=== PATIENT | male | born 2000 | race African-American/Black ===

== ENCOUNTER 2022-10-21 18:18 | Emergency (ER) | payer SELFPAY ==
[2022-10-21 18:52] VITALS: BP 119/77; O2SAT 100
[2022-10-21 18:53] LABS: HCT - HEMATOCRIT 43.3 % (42.0-52.0); HGB - HEMOGLOBIN 13.8 g/dL (14.0-18.0); LYMPHOCYTES # (AUTO) 1.8 10^3/uL (1.5-3.5); LYMPHOCYTES % (AUTO) 46.2 %; MEAN CORPUSCULAR HEMOGLOBIN 26.7 pg (27.0-31.0); MEAN CORPUSCULAR HGB CONC 31.9 g/dL (32.0-36.0); MEAN CORPUSCULAR VOLUME 83.9 fL (80.0-94.0); MEAN PLATELET VOLUME 11.2 fL (7.4-11.4); MONOCYTES # (AUTO) 0.3 10^3/uL (0.0-1.0); MONOCYTES % (AUTO) 8.9 %; NEUTROPHILS # (AUTO) 1.6 10^3/uL (1.5-6.6); NEUTROPHILS % (AUTO) 42.6 %; PLT - PLATELET COUNT 179 10^3/uL (130-450); RED BLOOD COUNT 5.16 10^6/uL (4.70-6.10); RED CELL DISTRIBUTION WIDTH 12.8 % (12.0-15.0); WHITE BLOOD COUNT 3.8 x10^3/uL (4.8-10.8)
[2022-10-21 19:07] LABS: ALBUMIN 4.7 g/dL (3.2-5.5); CALCIUM 9.7 mg/dL (8.5-10.3); CREATININE 1.2 mg/dL (0.6-1.3); POTASSIUM 3.5 mmol/L (3.5-4.5); TOTAL PROTEIN 7.1 g/dL (6.4-8.9)
[2022-10-21 19:07] LABS: BILIRUBIN,URINE NEGATIVE (NEGATIVE); GLUCOSE, URINE (UA) NEGATIVE (NEGATIVE); KETONES,URINE (UA) NEGATIVE (NEGATIVE); LEUKOCYTE ESTERASE, URINE NEGATIVE (NEGATIVE); NITRITE,URINE NEGATIVE (NEGATIVE); OCCULT BLOOD,URINE NEGATIVE (NEGATIVE); PROTEIN,URINE NEGATIVE (NEGATIVE); UROBILINOGEN,URINE 0.2 (NORMAL) E.U./dL (NORMAL)
[2022-10-21 19:10] LABS: CLARITY,URINE CLEAR (CLEAR)
[2022-10-21] MEDS ORDERED: PANTOPRAZOLE 40 MG TABLET PO STA (20:01)
--- NOTE | 2022-10-21 20:03 | ED Physician Documentation ---
PD HPI ABD PAIN - Stated complaint Stated Complaint: ABD PX - Chief complaint Chief Complaint: Abd Pain - History obtained from History obtained from: Patient - Additional information Additional information: 21-year-old with history of asthma but no other health history presents the evaluation of left upper quadrant pain. He has had intermittent left upper quadrant pain for the last 5 days that radiates to the back. It is worse after eating, especially spicy food. He has not been vomiting. He felt like he was constipated but took a laxative and did have a bowel movement. No history of abdominal surgeries. Other risk factors for gastritis include nicotine use, caffeine use, and he has been taking Advil for this. PD PAST MEDICAL HISTORY - Present Medications Home Medications: Ambulatory Orders Medication Instructions Recorded Confirmed Omeprazole 40 mg PO DAILY #30 cap 10/21/22 - Allergies Allergies/Adverse Reactions: Allergies Allergy/AdvReac Type Severity Reaction Status Date / Time No Known Drug Allergies Allergy Verified 10/21/22 18:38 PD ED PE NORMAL - Vitals Vital signs reviewed: Yes - General General: Alert and oriented X 3, No acute distress - Abdomen Abdomen: Normal bowel sounds, Soft, Non tender - Derm Derm: Normal color, Warm and dry - Neuro Neuro: Alert and oriented X 3, Normal speech Results - Vitals Vitals: Vital Signs - 24 hr 10/21/22 18:29 Temperature 36.7 C Heart Rate 65 Respiratory 20 Rate Blood Pressure 119/77 O2 Saturation 100 Oxygen O2 Source Room air - Labs Labs: Laboratory Tests 10/21/22 10/21/22 10/21/22 18:49 18:49 19:01 WBC 3.8 L RBC 5.16 Hgb 13.8 L Hct 43.3 MCV 83.9 MCH 26.7 L MCHC 31.9 L RDW 12.8 Plt Count 179 MPV 11.2 Neut # (Auto) 1.6 Lymph # (Auto) 1.8 Stephens # (Auto) 0.3 Eos # (Auto) 0.0 Baso # (Auto) 0.0 Absolute Nucleated RBC 0.00 Nucleated RBC % 0.0 Sodium 142 Potassium 3.5 Chloride 106 Carbon Dioxide 29 Anion Gap 7.0 BUN 16 Creatinine 1.2 Estimated GFR (MDRD) 95 Glucose 95 Calcium 9.7 Total Bilirubin 1.0 AST 12 ALT 11 Alkaline Phosphatase 35 L Total Protein 7.1 Albumin 4.7 Globulin 2.4 Albumin/Globulin Ratio 2.0 Lipase 23 Urine Color YELLOW Urine Clarity CLEAR Urine pH 6.0 Ur Specific [place] >=1.030 H Urine Protein NEGATIVE Urine Glucose (UA) NEGATIVE Urine Ketones NEGATIVE Urine Occult Blood NEGATIVE Urine Nitrite NEGATIVE Urine Bilirubin NEGATIVE Urine Urobilinogen 0.2 (NORMAL) Ur Leukocyte Esterase NEGATIVE Ur Microscopic Review NOT INDICATED Urine Culture Comments NOT INDICATED PD Medical Decision Making - ED course ED course: 21-year-old with abdominal pain consistent with gastritis and several risk factors for gastritis and triggers for gastritis. Benign exam. Mild lymphopenia on CBC, CMP normal. Urinalysis normal. Will treat with PPI pending follow-up and given close return precautions and dietary advice. Departure - Departure Disposition: Home, Self Care Clinical Impression: Gastritis Qualifiers: Gastritis type: unspecified gastritis Chronicity: acute Gastritis bleeding: with bleeding Qualified Code(s): K29.01 - Acute gastritis with bleeding Condition: Good Record reviewed to determine appropriate education?: Yes Instructions: ED Gastritis Prescriptions: Omeprazole 40 mg PO DAILY #30 cap Comments: Your history is consistent with gastritis. Labs are looking okay. Your white blood cell count was mildly low and should be followed by your primary care physician but that does not suggest anything specific. Gastritis is triggered by caffeine, nonsteroidal anti-inflammatory drugs, and nicotine as well as spicy food all of which you should try to decrease. Follow-up with your primary care physician, next available appointment Pyrid consider referral for upper endoscopy if symptoms are persistent. Return for new or worsening symptoms.
== END 2022-10-21 20:47 | disposition home or self-care (01) ==
LOC: ED 18:18
DX: K29.01 Acute gastritis with bleeding (principal)
CPT/HCPCS: 36415; 80053; 81003; 83690; 85025; 99283; 99284; A9270; 81001; 87086